=== PATIENT | male | born 1975 ===

== ENCOUNTER 2018-04-26 23:58 | Emergency (ER) | payer MEDICAID ==
[2018-04-27] MEDS ORDERED: Lidocaine 5% Patch TD STA (00:34)
[2018-04-27] MEDS ORDERED: Lidocaine 5% Patch TD ONE (01:04)
--- NOTE | 2018-04-27 01:14 | C.PDOC ---
History Of Present Illness 43 year old male presents to the ER with a complaint of right neck pain radiating to the mid back for the past few days. Patient states he has pain moving his head to the ipsilateral side. He notes he was doing heavy lifting prior to onset of pain. Denies injury, weakness, or numbness. Chief Complaint (Nursing): Back Pain History Per: Patient History/Exam Limitations: no limitations Onset/Duration Of Symptoms: Days Current Symptoms Are (Timing): Still Present Quality Of Discomfort: Unable To Describe Previous Symptoms: None Associated Symptoms: None Exacerbating Factor(s): Turning Recent travel outside of the [place]: No Past Medical History Reviewed: Historical Data, Nursing Documentation, Vital Signs Vital Signs: Last Vital Signs Temp 98.3 F 04/27/18 01:24 Pulse 94 H 04/27/18 01:24 Resp 20 04/27/18 01:24 BP 137/74 04/27/18 01:24 Pulse Ox 96 04/27/18 01:24 - Medical History PMH: Denies: Chronic Kidney Disease Surgical History: Hernia Repair Family History: States: CAD, Diabetes, Hypertension - Social History Hx Tobacco Use: Yes Hx Alcohol Use: No Hx Substance Use: No Review Of Systems Musculoskeletal: Positive for: Neck Pain, Back Pain Neurological: Negative for: Weakness, Numbness Physical Exam - Physical Exam Appears: Non-toxic, No Acute Distress Skin: Normal Color, Warm, Dry Head: Atraumatic, Normacephalic Eye(s): bilateral: Normal Inspection Neck: No Midline Cervical Tenderness, Paracervical Tenderness (Right sternocleidomastoid) Chest: Symmetrical, No Tenderness Cardiovascular: Rhythm Regular Respiratory: Normal Breath Sounds Back: Paraspinal Tenderness (Right trapezious) Extremity: Normal ROM (x4) Neurological/Psych: Oriented x3, Normal Speech, Normal Cognition, Normal Motor, Normal Sensation ED Course And Treatment - Other Rad Cervical spine x-ray X-Ray: Interpreted by Me, Viewed By Me Interpretation: No acute fractures or dislocation. Progress Note: Cervical spine x-ray ordered, results were negative. Lidoderm patch applied, valium and toradol administered. Patient reports improvement of pain, he is resting comfortably in the ER in no acute distress, vitals are stable, will discharge home with Rx and instructions to follow up with PMD. Disposition - Disposition Disposition: HOME/ ROUTINE Disposition Time: 01:11 Condition: GOOD Additional Instructions: Follow up with your PMD within 1-2 days. Return to ED if feel worse. 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 - Scribe Statement The provider has reviewed the documentation as recorded by the Scribwanda Gallardo All medical record entries made by the Sree were at my direction and personally dictated by me. I have reviewed the chart and agree that the record accurately reflects my personal performance of the history, physical exam, medical decision making, and the department course for this patient. I have also personally directed, reviewed, and agree with the discharge instructions and disposition.
[2018-04-27 01:25] VITALS: BP 137/74; PULSE 94; RESP 20; TEMP 98.3; O2SAT 96
--- NOTE | 2018-04-27 10:11 | RAD ---
Date of service: 04/27/2018 PROCEDURE: Cervical Spine Radiographs. HISTORY: Pain. COMPARISON: None. FINDINGS: BONES: Straightened curvature without fracture or spondylolisthesis identified. Odontoid process appears intact. DISC SPACES: C7-T1 disc interspace is obscured by the shoulders. Consider swimmer's view or lateral radiograph with upper extremity weight-bearing bilaterally. SOFT TISSUES: Normal. No prevertebral soft tissue swelling. OTHER FINDINGS: None. IMPRESSION: Straightened curvature without demonstrated fracture or spondylolisthesis C7 upper endplate to C1. C7-T1 level obscured by shoulders. Added radiography recommended for lower cervical spine.
== END 2018-04-27 01:26 | disposition home or self-care (01) ==
LOC: C.ER 23:58
DX: M62.838 Other muscle spasm (principal); Z72.0 Tobacco use
CPT/HCPCS: 72040; 96372; 99284; J1885

== ENCOUNTER 2018-06-27 11:07 | Emergency (ER) | payer MEDICAID ==
[2018-06-27 11:31] VITALS: RESP 18
--- NOTE | 2018-06-27 11:39 | C.PDOC ---
History Of Present Illness 43 y/o male presents to ED with c/o sharp chest pain since earlier this morning and also c/o chronic back pain increased with movement. Patient denies fever, chills, sob, bowel/bladder incontinence, dysuria or any other complaints at this time. Time Seen by Provider: 06/27/18 11:20 Chief Complaint (Nursing): Chest Pain History Per: Patient History/Exam Limitations: no limitations Onset/Duration Of Symptoms: Days Current Symptoms Are (Timing): Still Present Quality: Sharp Past Medical History Reviewed: Historical Data, Nursing Documentation, Vital Signs Vital Signs: Last Vital Signs Temp 97.8 F 06/27/18 11:28 Pulse 92 H 06/27/18 11:28 Resp 18 06/27/18 11:28 BP 132/90 06/27/18 11:28 Pulse Ox 98 06/27/18 11:28 - Medical History PMH: No Chronic Diseases Surgical History: Hernia Repair Family History: States: CAD, Diabetes, Hypertension - Social History Hx Tobacco Use: Yes Hx Alcohol Use: No Hx Substance Use: No Review Of Systems Constitutional: Negative for: Fever, Chills Cardiovascular: Positive for: Chest Pain Respiratory: Negative for: Cough, Shortness of Breath Gastrointestinal: Negative for: Nausea, Vomiting, Abdominal Pain Genitourinary: Negative for: Dysuria, Incontinence Musculoskeletal: Positive for: Back Pain Skin: Negative for: Rash Physical Exam - Physical Exam Appears: Non-toxic, No Acute Distress Skin: Warm, Dry, No Rash Head: Atraumatic, Normacephalic Eye(s): bilateral: Normal Inspection Oral Mucosa: Moist Neck: Normal ROM, Supple Cardiovascular: Rhythm Regular Respiratory: Normal Breath Sounds, No Rales, No Rhonchi, No Wheezing Gastrointestinal/Abdominal: Soft, No Tenderness, No Guarding, No Rebound Back: No CVA Tenderness Neurological/Psych: Oriented x3, Normal Speech, Normal Cognition ED Course And Treatment - Laboratory Results Result Diagrams: 06/27/18 11:58 06/27/18 11:58 ECG: Interpreted By Me, Viewed By Me ECG Rhythm: Sinus Tachycardia Rate From EC (BPM ) O2 Sat by Pulse Oximetry: 98 (RA) Pulse Ox Interpretation: Normal Disposition - Disposition Referrals: [facility] [Outside] [facility] [Outside] Disposition: HOME/ ROUTINE Disposition Time: 12:30 Condition: IMPROVED Additional Instructions: RAEGAN JENKINS, thank you for letting us take care of you today. The emergency medical care you received today was directed at your acute symptoms. If you were prescribed any medication, please fill it and take as directed. It may take several days for your symptoms to resolve. Return to the Emergency Department if your symptoms worsen, do not improve, or if you have any other problems. Please contact your doctor or call one of the physicians/clinics you have been referred to that are listed on the Patient Visit Information form that is included in your discharge packet. Bring any paperwork you were given at discharge with you along with any medications you are taking to your follow up visit. Our treatment cannot replace ongoing medical care by a primary care provider outside of the emergency department. Thank you for allowing the [facility] team to be part of your care today. Follow up with the clinic in 3-5 days for re-evaluation and further management. Prescriptions: Ibuprofen [Motrin] 600 mg PO Q6 PRN #20 tab PRN Reason: Pain, Moderate (4-7) Instructions: Muscle and Bone Pain (DC) Forms: [employer] (Georgian) - Clinical Impression Clinical Impression: Musculoskeletal pain - Scribe Statement The provider has reviewed the documentation as recorded by the Scribe Bhupinder Schofield All medical record entries made by the Scribe were at my direction and personally dictated by me. I have reviewed the chart and agree that the record accurately reflects my personal performance of the history, physical exam, medical decision making, and the department course for this patient. I have also personally directed, reviewed, and agree with the discharge instructions and disposition.
[2018-06-27 12:08] LABS: BASO % 0.4 % (0.0-2.0); EOS # 0.1 K/uL (0.0-0.7); EOS % 1.9 % (0.0-4.0); HEMOGLOBIN 14.9 g/dL (12.0-18.0); LYMPH # 1.2 K/uL (1.0-4.3); LYMPH % 20.6 % (20.0-40.0); MEAN CORPUSCULAR HEMOGLOBIN 28.3 pg (27.0-31.0); MEAN CORPUSCULAR HGB CONC 33.7 g/dL (33.0-37.0); MEAN PLATELET VOLUME 11.2 fL (7.2-11.7); MONO # 0.5 K/uL (0.0-0.8); MONO % 9.6 % (0.0-10.0); NEUT # 3.8 K/uL (1.8-7.0); NEUT % 67.5 % (50.0-75.0); NRBC % 0.1 % (0.0-2.0); RBC 5.26 Mil/uL (4.40-5.90); WHITE BLOOD COUNT 5.7 K/uL (4.8-10.8)
[2018-06-27 12:19] LABS: ALB/GLOB RATIO 1.7 (1.0-2.1); ALBUMIN 4.4 g/dL (3.5-5.0); ALT/SGPT 68 U/L (21-72); AST/SGOT 33 U/L (17-59); BLOOD UREA NITROGEN 18 mg/dL (9-20); CALCIUM 9.6 mg/dl (8.6-10.4); GFR NON-AFRICAN AMERICAN > 60
[2018-06-27 13:16] VITALS: BP 127/86; PULSE 95; TEMP 98.5
--- NOTE | 2018-06-27 13:30 | RAD ---
Date of service: 06/27/2018 PROCEDURE: CHEST RADIOGRAPH, 1 VIEW HISTORY: chest pain COMPARISON: 09/22/2012 FINDINGS: LUNGS: Current inspiration much less than before. Current more apical lordotic projection. Right lung clear. Left inferolateral increase opacity-here summation of soft tissues versus left pleural based pathology consideration. No blunting or silhouetting of the left costophrenic angle noted. Summation of prominent soft tissues favored. PLEURA: No pneumothorax or pleural fluid seen. CARDIOVASCULAR: Cardiomegaly. Pulmonary venous congestion-increased since prior exam accentuated with crowding There is absence of aortic atherosclerotic calcification on x-ray. OSSEOUS STRUCTURES: No significant abnormalities. VISUALIZED UPPER ABDOMEN: Normal. OTHER FINDINGS: None. IMPRESSION: Limited exam given shallow inspiration. Cardiomegaly and mild pulmonary venous congestion along with crowding of vessels inferred. Contiguous left inferolateral pleural parenchymal based pathology not excluded. When patient can tolerate consider follow-up PA and lateral view chest x-ray
[2018-06-27 13:39] VITALS: O2SAT 98
--- NOTE | 2018-07-01 17:48 | CARD ---
APPROVED REPORT Date of service: 06/27/2018 EKG Measurement Heart [id number] PA 138P [id number] <Conclusion> ARM LEADS REVERSAL - PLEASE REPEAT Poor R wave progression Abnormal ECG
== END 2018-06-27 13:15 | disposition home or self-care (01) ==
LOC: C.ER 11:07
DX: M79.18 Myalgia, other site (principal)
CPT/HCPCS: 71045; 80053; 84484; 85025; 85378; 93005; 96374; 99284; J1885

== ENCOUNTER 2018-07-23 17:43 | Emergency (ER) | payer MEDICAID ==
[2018-07-23 18:00] VITALS: O2SAT 98
--- NOTE | 2018-07-23 18:31 | C.PDOC ---
Time Seen by Provider: 07/23/18 18:26 Chief Complaint (Nursing): Chest Pain Past Medical History Vital Signs: Last Vital Signs Temp 97.8 F 07/23/18 17:57 Pulse 99 H 07/23/18 17:57 Resp 22 07/23/18 17:57 BP 146/82 07/23/18 17:57 Pulse Ox 98 07/23/18 17:57 - Medical History PMH: Denies: Chronic Kidney Disease Surgical History: Hernia Repair Family History: States: CAD, Diabetes, Hypertension - Social History Hx Tobacco Use: Yes Hx Alcohol Use: No Hx Substance Use: No ED Course And Treatment O2 Sat by Pulse Oximetry: 98 Progress - Re-Evaluation Re-evaluation Note: 07/23/18 18:30 nj rx reviewd 07/17/2018 OXYCODONE-ACETAMINOPHEN 5-325, 10.0 Disposition - Disposition
--- NOTE | 2018-07-23 18:48 | C.PDOC ---
History Of Present Illness 43 y/o male presents to the ER complaining of worsening left back pain which has been present for the past 1 month. Patient states that he feels pain mainly in the left shoulderblade and he describes the pain as sharp and stabbing. Patient reports that the pain radiates to the top of left shoulder and down the left arm. He notes that the pains is worse with movement now. He has occasional parasthesias in the left arm. He was evaluated at [facility] for left renal colic. He was discharged with prescription for percocet and he has finished the packs. He is right-handed .Denies having trauma, weakness, CP, and SOB. Of note, patient has multiple prior ER visits for same complaint but he has never followed up with a specialist. <Raya Gabriel - Last Filed: 07/23/18 19:08> History Per: Patient History/Exam Limitations: no limitations Onset/Duration Of Symptoms: Days Current Symptoms Are (Timing): Still Present Severity: Moderate <Raya Gabriel - Last Filed: 07/23/18 19:08> <Kaleigh Radford - Last Filed: 07/23/18 21:42> Time Seen by Provider: 07/23/18 18:26 Chief Complaint (Nursing): Chest Pain Past Medical History Reviewed: Historical Data, Nursing Documentation, Vital Signs Vital Signs: Last Vital Signs Temp 97.8 F 07/23/18 17:57 Pulse 99 H 07/23/18 17:57 Resp 22 07/23/18 17:57 BP 146/82 07/23/18 17:57 Pulse Ox 98 07/23/18 17:57 - Medical History PMH: No Chronic Diseases Denies: Chronic Kidney Disease Surgical History: Hernia Repair Family History: States: CAD, Diabetes, Hypertension - Social History Hx Tobacco Use: Yes Hx Alcohol Use: No Hx Substance Use: No <Raya Gabriel - Last Filed: 07/23/18 19:08> Vital Signs: Last Vital Signs Temp 98 F 07/23/18 21:06 Pulse 96 H 07/23/18 21:06 Resp 18 07/23/18 21:06 BP 139/94 H 07/23/18 21:06 Pulse Ox 98 07/23/18 21:06 <Kaleigh Radford - Last Filed: 07/23/18 21:42> Review Of Systems Except As Marked, All Systems Reviewed And Found Negative. Constitutional: Negative for: Fever, Chills Cardiovascular: Negative for: Chest Pain Respiratory: Negative for: Shortness of Breath Musculoskeletal: Positive for: Back Pain Neurological: Negative for: Weakness <Raya Gabriel - Last Filed: 07/23/18 19:08> Physical Exam - Physical Exam Appears: Other (moderate distress) Skin: Normal Color, Warm, Dry Head: Atraumatic, Normacephalic Eye(s): bilateral: Normal Inspection Neck: No Midline Cervical Tenderness, Supple Cardiovascular: Rhythm Regular Respiratory: Other (NARD) Back: Muscle Spasm (general spasm in left upper trapezius), Other (tenderness to left upper trapezius) Extremity: No Normal ROM (limited movement in left shoulder secondary to pain) Extremity: Bilateral: Atraumatic Neurological/Psych: Oriented x3, Normal Speech, Normal Motor, Normal Sensation <Raya Gabriel Last Filed: 07/23/18 19:08> ED Course And Treatment ECG: Interpreted By Me, Viewed By Me ECG Rhythm: Sinus Rhythm Rate From EC O2 Sat by Pulse Oximetry: 98 (RA) Pulse Ox Interpretation: Normal <Raya Gabriel - Last Filed: 07/23/18 19:08> Progress - Re-Evaluation Re-evaluation Note: 07/23/18 18:45 [facility] 07/17/2018 07/16/2018 OXYCODONE-ACETAMINOPHEN 5-325 - Data Reviewed Data Reviewed: Old records <Raya Gabriel - Last Filed: 07/23/18 19:08> Medical Decision Making Medical Decision Making: Plan: --Gabapentin --Toradol IM --Decadron PO --Valium PO <Raya Gabriel - Last Filed: 07/23/18 19:08> Disposition - Disposition Disposition Time: 19:00 <Raya Gabriel - Last Filed: 07/23/18 19:08> Counseled Patient/Family Regarding: Studies Performed, Diagnosis, Need For Followup, Rx Given - Disposition Disposition Time: 21:40 - POA Present On Arrival: None <Kaleigh Radford - Last Filed: 07/23/18 21:42> - Disposition Referrals: [facility] [Outside] Damaris Ramirez MD [Staff Provider] - Michael Angel Jr., MD [Medical Doctor] - Disposition: HOME/ ROUTINE Condition: STABLE Additional Instructions: FOLLOW UP WITH YOUR DOCTOR/CLINIC IN 1-2 DAYS USE MEDICATIONS NEEDED DO NOT TAKE VALIUM AND VICODIN AT SAME TIME RETURN TO ER IF SYMPTOMS WORSEN Prescriptions: Diazepam [Valium] 2 mg PO BID PRN #12 tablet PRN Reason: musle spasm Hydrocodone/Acetaminophen [Hydrocodone-Acetamin 5-325 mg] 1 each PO Q6 PRN #15 tablet PRN Reason: PAIN Lidocaine 5% [Lidoderm] 1 patch TOP DAILY PRN #15 patch PRN Reason: pain Naproxen [Naprosyn] 1 tab PO BID PRN #25 tab PRN Reason: Pain Instructions: Upper Back Pain (DC) Forms: [employer] (Maltese) Print Language: UPPER SORBIAN - Clinical Impression Clinical Impression: Back pain, Pain in scapula - Scribe Statement The provider has reviewed the documentation as recorded by the Sree Sinha Provider Attestation: All medical record entries made by the Markibwanda were at my direction and personally dictated by me. I have reviewed the chart and agree that the record accurately reflects my personal performance of the history, physical exam, medical decision making, and the department course for this patient. I have also personally directed, reviewed, and agree with the discharge instructions and disposition. <Raya Gabriel - Last Filed: 07/23/18 19:08>
[2018-07-23] MEDS ORDERED: Lidocaine 5% Patch TD STA (20:28)
[2018-07-23] MEDS ORDERED: Lidocaine 5% Patch TD ONE (20:38)
[2018-07-23] MEDS ORDERED: Morphine 4 MG/ML VIAL ONE (21:02)
[2018-07-23 21:07] VITALS: RESP 18; TEMP 98
[2018-07-23 21:57] VITALS: BP 135/90; PULSE 90
--- NOTE | 2018-07-25 07:29 | CARD ---
APPROVED REPORT Date of service: 07/23/2018 EKG Measurement Heart [id number] <Conclusion> Normal sinus rhythm Normal ECG
== END 2018-07-23 21:56 | disposition home or self-care (01) ==
LOC: C.ER 17:43
DX: M54.89 Other dorsalgia (principal)
CPT/HCPCS: 96372; 99284; J1885; J2270; J8540